=== PATIENT | female | born 1975 | race Caucasian/White ===

== ENCOUNTER 2020-07-23 08:10 | Emergency (ER) | payer OTHER, BC ==
[~2020-07-23] VITALS: Ht 165.1 cm; Wt 82.7 kg
[2020-07-23] MEDS ORDERED: CRESTOR40 MG PO (09:17)
[2020-07-23 09:47] VITALS: BP 124/82
== END 2020-07-23 10:15 | disposition home or self-care (01) | DRG 605 ==
LOC: ED 08:10
DX: S90.02XA Contusion of left ankle, initial encounter (principal); E78.5 Hyperlipidemia, unspecified; V03.00XA Pedestrian on foot injured in collision with car, pick-up truck or van in nontraffic accident, initial encounter; Y92.89 Other specified places as the place of occurrence of the external cause; Y99.0 Civilian activity done for income or pay